=== PATIENT | female | born 2000 | race African-American/Black ===

== ENCOUNTER 2021-08-12 17:53 | Emergency (ER) | payer OTHER ==
[~2021-08-12] VITALS: Ht 175.3 cm; Wt 61.7 kg
[2021-08-12] MEDS ORDERED: SUPER THERAVIT1 EACH PO (18:08)
[2021-08-12 18:43] LABS: BASOPHILS 0.4 % (0.0-2.0); EOSINOPHILS 3.9 % (0.0-3.0); HEMOGLOBIN 11.5 gm/dL (12.0-15.0); LYMPHOCYTES 31.9 % (24.0-44.0); MCHC 31.8 g/dL (28.0-37.0); MCV 84.6 fL (80.0-100.0); MONOCYTES 10.5 % (1.0-8.0); PLATELET COUNT 228 thou/uL (150-400); POLYS 53.3 % (36.0-66.0); RBC 4.25 mil/uL (4.20-5.00); RDW 13.1 % (10.5-14.5); WBC 7.4 thou/uL (4.0-11.0)
[2021-08-12 18:50] LABS: CALCIUM 9.1 mg/dL (8.5-10.1); CREATININE 0.9 mg/dL (0.6-1.0); POTASSIUM 3.8 mmol/L (3.5-5.1)
[2021-08-12 19:00] LABS: ALBUMIN 4.3 g/dL (3.4-5.0); MAGNESIUM 2.1 mg/dL (1.8-2.4); TOTAL BILIRUBIN 0.6 mg/dL (0.2-1.0); TOTAL PROTEIN 7.8 g/dL (6.4-8.2)
[2021-08-12 19:47] VITALS: BP 108/78
--- NOTE | 2021-08-14 07:23 | EKG ---
[address] [address] ELECTROCARDIOGRAM REPORT Name: IGOR ADEN Room #: [facility] Chana#: [id number] Admission: 08/12/21 Attend Phys: Discharge: 08/12/21 Date of : 89 Report #: [id number] [facility] ED Test Date: 2021-08-12 Test Time: 17:57:28 Pat Name: IGOR ADEN Department: Room: Gender: F Component Lab Tech: XX : 2000 Requested By: John Ferreira Order Number: [id number] MD: Mauricio Giles Measurements Intervals Freedom Rate: 91 P: 52 SC: 166 QRS: 20 QRSD: 89 T: 57 QT: 353 QTc: 435 Interpretive Statements Sinus rhythm RSR' in V1 or V2, probably normal variant Baseline wander in lead(s) V6 No previous ECG available for comparison Electronically Signed On 08-14-2021 7:23:20 [employer] by Mauricio Giles [email or web address] <ELECTRONICALLY SIGNED> By: Mauricio Giles MD, [facility] 08/14/21 0723 1757 1757 Mauricio Giles MD, FACC /EPI
== END 2021-08-12 19:49 | disposition home or self-care (01) ==
LOC: ER 17:53
PROVIDERS: Emergency Medicine
DX: R00.2 Palpitations (principal); Z79.899 Other long term (current) drug therapy; Z88.6 Allergy status to analgesic agent